=== PATIENT | female | born 1960 | race African-American/Black ===

== ENCOUNTER 2016-05-07 07:13 | Emergency (ER) | payer OTHER | END 2016-05-07 08:43 | disposition home or self-care (01) | LOC: ER 07:13 | CPT/HCPCS: 71010; 87804; 87880; 93005 ==

== ENCOUNTER 2016-05-17 10:12 | Emergency (ER) | payer OTHER ==
[2016-05-17] MEDS ORDERED: KETOROLAC 30 MG/ML VIAL ONE (11:44)
== END 2016-05-17 13:24 | disposition home or self-care (01) ==
LOC: ER 10:12
DX: R09.1 Pleurisy (principal); F17.210 Nicotine dependence, cigarettes, uncomplicated
CPT/HCPCS: 36415; 71010; 80053; 82553; 84484; 85025; 85379; 93005; 96374; 99284; J1885